=== PATIENT | female | born 1940 | race Caucasian/White ===

== ENCOUNTER 2020-06-03 10:20 | Emergency (ER) | payer MEDICARE, BC ==
[~2020-06-03] VITALS: Ht 162.6 cm; Wt 57.6 kg
--- NOTE | 2020-06-03 10:32 | NUR ---
PT BIB FRIEND FROM HOME WITH S/P FALL. -KO, -CARMICHAEL, NO PAIN ON HER NECK. PT STATES SHE FELL ON HER LEFT HAND. NOTED WITH DEFORMITY ON LEFT WRIST. AWAITING FOR MD KIMBLE
--- NOTE | 2020-06-03 10:33 | NUR ---
md at bedside evaluating pt
[2020-06-03] MEDS ORDERED: ACETAMINOPHEN ES 500 MG TABLET ONE (10:48)
[2020-06-03] MEDS ORDERED: ACETAMINOPHEN ES 500 MG TABLET PO ONE (11:00)
[2020-06-03 12:37] VITALS: BP 125/72
== END 2020-06-03 12:38 | disposition home or self-care (01) ==
LOC: ER 10:35
DX: S52.612A Displaced fracture of left ulna styloid process, initial encounter for closed fracture (principal); S52.592A Other fractures of lower end of left radius, initial encounter for closed fracture; Z88.2 Allergy status to sulfonamides; W18.39XA Other fall on same level, initial encounter; Y93.89 Activity, other specified; Y92.89 Other specified places as the place of occurrence of the external cause; Y99.8 Other external cause status
CPT/HCPCS: 73110

== ENCOUNTER 2020-06-05 11:06 | Outpatient (CLI) | payer MEDICARE, BC | END 2020-06-05 23:59 | disposition home or self-care (01) | LOC: LAB 11:06 | PROVIDERS: ATTEND Student in an Organized Health Care Education/Training Program | DX: Z01.812 Encounter for preprocedural laboratory examination (principal); Z20.828 Contact with and (suspected) exposure to other viral communicable diseases | CPT/HCPCS: 87426; C9803; U0003 ==

== ENCOUNTER 2020-06-09 10:09 | Day surgery (SDC) | payer MEDICARE, BC ==
[2020-06-09] MEDS ORDERED: BACITRACIN 50000 UNITS/VIAL ONE (11:32)
[2020-06-09] MEDS ORDERED: BUPIVACAINE 0.5 % PF 150 MG/30 ML VIAL ONE (11:32)
[2020-06-09] MEDS ORDERED: ANESTHESIA TRAY IN PYXIS 1 EA TRAY MC ONE ×2 (11:33→16:00)
[2020-06-09 11:51] LABS: BASOPHILS % (AUTO) 0.6 % (0.0-2.0); EOSINOPHILS % (AUTO) 0.8 % (0.0-6.0); HEMATOCRIT 42 % (33-45); HEMOGLOBIN 13.6 g/dL (11.5-14.8); LYMPHOCYTES # (AUTO) 1.1 /CMM (0.8-4.8); LYMPHOCYTES % (AUTO) 19.7 % (20.0-44.0); MEAN CORPUSCULAR HGB CONC 33 g/dl (31.0-36.0); MEAN CORPUSCULAR VOLUME 96 fL (82-100); MONOCYTES # (AUTO) 0.4 /CMM (0.1-1.30); MONOCYTES % (AUTO) 7.3 % (2.0-12.0); NEUTROPHILS # (AUTO) 4.1 /CMM (1.8-8.9); NEUTROPHILS % (AUTO) 71.6 % (43.0-81.0); PLATELET COUNT (AUTO) 377 /CMM (150-450); RED BLOOD CELL COUNT(AUTO) 4.34 MIL/uL (4.0-5.2); WHITE BLOOD COUNT (AUTO) 5.7 K/uL (4.3-11.0)
[2020-06-09] MEDS ORDERED: FENTANYL PF 250MCG/5ML AMPUL ONE (11:51)
[2020-06-09] MEDS ORDERED: MIDAZOLAM HCL 2 MG/2ML VIAL ONE (11:51)
[2020-06-09 11:53] LABS: APPEARANCE,URINE CLOUDY (CLEAR); BILIRUBIN,URINE NEGATIVE (NEGATIVE); BLOOD, URINE NEGATIVE Ery/uL (NEGATIVE); COLOR,URINE YELLOW (YELLOW); KETONES,URINE 15 (NEGATIVE); LEUKOCYTE ESTERASE ,URINE TRACE (NEGATIVE); NITRITE, URINE NEGATIVE (NEGATIVE); PROTEIN,URINE NEGATIVE (NEGATIVE); UGLUCOSE NEGATIVE (NEGATIVE); UROBILINOGEN,URINE 0.2 EU/dL (0.2)
[2020-06-09] MEDS ORDERED: ROCURONIUM BROMIDE 50 MG/5 ML ONE (11:54)
[2020-06-09] MEDS ORDERED: HYDROMORPHONE INJ 2 MG/ML DISP.SYRIN ONE (11:54)
[2020-06-09 11:58] LABS: CALCIUM, SERUM 9.2 mg/dL (8.5-10.1); CREATININE 0.6 mg/dL (0.6-1.3); POTASSIUM 4.3 mmol/L (3.5-5.1)
[2020-06-09] MEDS ORDERED: VANCOMYCIN 1 GM VIAL ONE (12:05)
[2020-06-09 12:20] LABS: BACTERIA,URINE Few /HPF (None Seen); RBC,URINE 0-2 /HPF (0-2); SQUAMOUS EPITHELIAL CELL,UR Few /HPF (None Seen)
[2020-06-09] MEDS ORDERED: VANCOMYCIN 500 MG in IV D5W 100ml IV ONE (12:30)
[2020-06-09] MEDS ORDERED: HYDROMORPHONE 1 MG/1 ML DISP.SYRIN ONE (14:56)
[2020-06-09] MEDS ORDERED: oxyCODONE/APAP (5/325 MG) 1 UDTAB TABLET ONE (15:09)
[2020-06-09] MEDS ORDERED: oxyCODONE/APAP (5/325 MG) 1 UDTAB TABLET PO PRN (15:30)
== END 2020-06-09 16:35 | disposition home or self-care (01) ==
LOC: DS 10:09
PROVIDERS: ATTEND Student in an Organized Health Care Education/Training Program
DX: S52.572A Other intraarticular fracture of lower end of left radius, initial encounter for closed fracture (principal); X58.XXXA Exposure to other specified factors, initial encounter; Y93.89 Activity, other specified; Y92.89 Other specified places as the place of occurrence of the external cause; Y99.8 Other external cause status
CPT/HCPCS: 25609; 36415; 71045; 73100; 80048; 81001; 85025; 85730; 86850; 87086; A4565; A6402; C1713 ×10; J1170 ×2; J2250; J2405; J2704; J3010; J3370; J3490; J7060; 81000-TC